=== PATIENT | male | born 1965 | race Two or more races ===

== ENCOUNTER 2017-09-03 12:35 | Inpatient (IN) | payer OTHER ==
[2017-09-03 14:55] VITALS: BMI 24.2
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
[2017-09-03] MEDS ORDERED: NICOTINE POLACRILEX 4 MG GUM BC PRN (15:18)
[2017-09-03] MEDS ORDERED: ACETAMINOPHEN 325 MG TABLET (FP) PO PRN (15:18)
[2017-09-03] MEDS ORDERED: IBUPROFEN 400 MG TABLET (FP) PO PRN (15:18)
[2017-09-03] MEDS ORDERED: MENTHOL/PHENOL 1 EACH UD MM PRN (15:18)
[2017-09-03] MEDS ORDERED: P-EPHED 60MG/TRIPROLIDI 2.5MG TABLET PO PRN (15:18)
[2017-09-03] MEDS ORDERED: hydrOXYzine PAMOATE 50 MG CAPSULE (FP) PO PRN (15:18)
[2017-09-03] MEDS ORDERED: guaiFENesin/D-METHORPHAN HB 10 ML UNIT-DOSE CUPS PO PRN (15:18)
[2017-09-03] MEDS ORDERED: chlordiazePOXIDE HCL 25 MG CAPSULE PO PRN (15:18)
[2017-09-03] MEDS ORDERED: MAG HYDROX/AL HYDROX/SIMETH 30 ML UNIT-DOSE CUP PO PRN (15:18)
[2017-09-03] MEDS ORDERED: diphenhydrAMINE HCL 50 MG CAPSULE PO PRN (15:18)
[2017-09-03] MEDS ORDERED: MAGNESIUM CITRATE 300 ML BOTTLE PO PRN (15:18)
[2017-09-03] MEDS ORDERED: MAGNESIUM HYDROX 2400MG/30ML ORAL SUSPENSION 30 ML CUP PO PRN (15:18)
[2017-09-03] MEDS ORDERED: LOPERAMIDE HCL 2 MG CAPSULE PO PRN (15:18)
[2017-09-03] MEDS ORDERED: chlordiazePOXIDE HCL 25 MG CAPSULE PO ONE (16:45)
[2017-09-03] MEDS ORDERED: METHADONE HCL 10 MG TABLET (FOR DETOX USE ONLY) PO ONE ×2 (17:00→23:00)
[2017-09-03] MEDS: chlordiazePOXIDE HCL 25 MG CAPSULE PO SCH ×2 (17:22→22:21)
[2017-09-03 21:13] LABS: URINE APPEARANCE SLCLOUDY; URINE BILIRUBIN NEGATIVE (NEGATIVE); URINE BLOOD NEGATIVE (NEGATIVE); URINE COLOR YELLOW; URINE GLUCOSE (UA) NEGATIVE (NEGATIVE); URINE KETONE NEGATIVE (NEGATIVE); URINE NITRITE NEGATIVE (NEGATIVE); URINE PROTEIN NEGATIVE (NEGATIVE); URINE UROBILINOGEN NEGATIVE mg/dL (0.2-1.0)
[2017-09-03] MEDS: THIAMINE HCL 100 MG TABLET (FP) PO SCH (22:21)
[2017-09-03 22:36] LABS: URINE LEUK ESTERASE Negative (NEGATIVE)
[2017-09-04] MEDS: chlordiazePOXIDE HCL 25 MG CAPSULE PO SCH ×4 (05:33→22:12)
[2017-09-04] MEDS ORDERED: METHADONE HCL 10 MG TABLET (FOR DETOX USE ONLY) PO SCH (10:00)
[2017-09-04 10:01] LABS: MCH 28.8 pg (25.7-33.7); MCHC 33.1 g/dl (32.0-35.9); MEAN CELL VOLUME 87.1 fl (80-96); MEAN PLT VOLUME 9.2 fl (7.5-11.1); PLATELET COUNT 288 K/MM3 (134-434); RDW 13.6 % (11.9-15.9); WHITE BLOOD COUNT 6.5 K/mm3 (4.0-10.0)
[2017-09-04] MEDS: NICOTINE 21 MG/24 HOURS TOPICAL PATCH TD SCH (10:16)
[2017-09-04] MEDS: PRENATAL VITAMINS W/ FOLIC ACID TABLET (FP) PO SCH (10:16)
[2017-09-04 10:40] LABS: ALBUMIN 3.5 g/dl (3.4-5.0); ALK PHOS 79 U/L (45-117); ANION GAP 8 (8-16); BILIRUBIN,TOTAL 0.6 mg/dL (0.2-1.0); CALCIUM 8.7 mg/dL (8.5-10.1); CO2 26 mmol/L (21-32); GLUCOSE,RANDOM 86 mg/dL (74-106); SGOT/AST 21 U/L (15-37); SGPT/ALT 26 U/L (12-78); TOT PROT 6.7 g/dl (6.4-8.2)
--- NOTE | 2017-09-04 13:24 | EKG ---
Test Reason : Blood Pressure : / mmHG Vent. Rate : 053 BPM Atrial Rate : 053 BPM P-R Int : 150 ms QRS Dur : 084 ms QT Int : 404 ms P-R-T Axes : 049 085 063 degrees QTc Int : [address] ELEVATION, CONSIDER EARLY REPOLARIZATION BORDERLINE ECG NO PREVIOUS ECGS AVAILABLE Confirmed by VERONICA SOLIS MD ([id number]) on 09/04/2017 1:24:41 PM Referred By: Confirmed By:VERONICA SOLIS MD
--- NOTE | 2017-09-04 13:24 | EKG ---
Test Reason : Blood Pressure : / mmHG Vent. Rate : 051 BPM Atrial Rate : 051 BPM P-R Int : 174 ms QRS Dur : 096 ms QT Int : 418 ms P-R-T Axes : 076 082 063 degrees QTc Int : 385 ms SINUS BRADYCARDIA WITH SINUS ARRHYTHMIA OTHERWISE NORMAL ECG WHEN COMPARED WITH ECG OF 03-SEP-2017 17:04, NO SIGNIFICANT CHANGE WAS FOUND Confirmed by VERONICA SOLIS MD ([id number]) on 09/04/2017 1:24:13 PM Referred By: Confirmed By:VERONICA SOLIS MD
--- NOTE | 2017-09-04 14:09 | PN ---
[facility] CIWA - CIWA Score Nausea/Vomitin-No Nausea/No Vomiting Muscle Tremors: 4-Moderate,w/Arms Extend Anxiety: 4-Mod. Anxious/Guarded Agitation: 3 Paroxysmal Sweats: 3 Orientation: 0-Oriented Tacttile Disturbances: 2-Mild Itch/Numbness/Burn Auditory Disturbances: 0-None Visual Disturbances: 2-Mild Sensitivity Headache: 0-None Present CIWA-Ar Total Score: 18 BHS COWS - Scale Resting Pulse: 0= [place] 80 or Below Sweatin= Chills/Flushing Restless Observation: 1= Difficult to Sit Still Pupil Size: 0= Normal to Room Light Bone or Joint Aches: 2= Severe Diffuse Aches Runny Nose/ Eye Tearin= Nasal Congestion GI Upset > 30mins: 1= Stomach Cramp Tremor Observation of Outstretched Hands: 2= Slight Tremor Visible Yawning Observation: 1= 1-2x During Session Anxiety or Irritability: 2=Irritable/Anxious Goose Flesh Skin: 3=Piloerection COWS Score: 14 [facility] Progress Note (SOAP) Subjective: Stomach Cramping, Body Aches, Sweating, Tremors. Objective: PT. A & O X 3, OBSERVED AMBULATING ON UNIT. NO ACUTE DISTRESS. 09/04/17 14:10 Vital Signs Temperature 97.5 F L 09/04/17 13:35 Pulse Rate 66 09/04/17 13:35 Respiratory Rate 16 09/04/17 13:35 Blood Pressure 108/71 09/04/17 13:35 O2 Sat by Pulse Oximetry (%) Laboratory Tests 09/03/17 09/04/17 09/04/17 20:45 05:45 05:45 WBC 6.5 RBC 4.55 Hgb 13.1 Hct 39.6 MCV 87.1 MCH 28.8 MCHC 33.1 RDW 13.6 Plt Count 288 MPV 9.2 Sodium 139 Potassium 4.1 Chloride 105 Carbon Dioxide 26 Anion Gap 8 BUN 11 Creatinine 1.0 Creat Clearance w eGFR > 60 Random Glucose 86 Calcium 8.7 Total Bilirubin 0.6 D AST 21 D ALT 26 Alkaline Phosphatase 79 Total Protein 6.7 Albumin 3.5 Urine Color Yellow Urine Appearance Slcloudy Urine pH 5.0 Ur Specific [place] 1.025 Urine Protein Negative Urine Glucose (UA) Negative Urine Ketones Negative Urine Blood Negative Urine Nitrite Negative Urine Bilirubin Negative Urine Urobilinogen Negative Ur Leukocyte Esterase Negative RPR Titer 09/04/17 05:45 WBC RBC Hgb Hct MCV MCH MCHC RDW Plt Count MPV Sodium Potassium Chloride Carbon Dioxide Anion Gap BUN Creatinine Creat Clearance w eGFR Random Glucose Calcium Total Bilirubin AST ALT Alkaline Phosphatase Total Protein Albumin Urine Color Urine Appearance Urine pH Ur Specific [place] Urine Protein Urine Glucose (UA) Urine Ketones Urine Blood Urine Nitrite Urine Bilirubin Urine Urobilinogen Ur Leukocyte Esterase RPR Titer Nonreactive LABS NOTED. Assessment: 09/04/17 14:10 WITHDRAWAL SYMPTOMS. Plan: CONTINUE DETOX.
[2017-09-04] MEDS: THIAMINE HCL 100 MG TABLET (FP) PO SCH (22:12)
[2017-09-05] MEDS: chlordiazePOXIDE HCL 25 MG CAPSULE PO SCH ×2 (05:25→11:55)
[2017-09-05] MEDS ORDERED: CYCLOBENZAPRINE HCL 10 MG TABLET (FP) PO PRN (09:59)
[2017-09-05] MEDS ORDERED: METHADONE HCL 5 MG TABLET (FOR DETOX USE ONLY) PO SCH (10:00)
[2017-09-05] MEDS: PRENATAL VITAMINS W/ FOLIC ACID TABLET (FP) PO SCH (10:32)
[2017-09-05] MEDS: NICOTINE 21 MG/24 HOURS TOPICAL PATCH TD SCH (10:33)
--- NOTE | 2017-09-05 12:56 | PN ---
[facility] CIWA - CIWA Score Nausea/Vomitin Muscle Tremors: 3 Anxiety: 3 Agitation: 1-Slight > Activity Paroxysmal Sweats: 3 Orientation: 0-Oriented Tacttile Disturbances: 0-None Auditory Disturbances: 2-Mild Harshness/Frighten Visual Disturbances: 2-Mild Sensitivity Headache: 0-None Present CIWA-Ar Total Score: 17 BHS COWS - Scale Resting Pulse: 1= [place] 81-100 Sweatin= Chills/Flushing Restless Observation: 1= Difficult to Sit Still Pupil Size: 0= Normal to Room Light Bone or Joint Aches: 2= Severe Diffuse Aches Runny Nose/ Eye Tearin= Nasal Congestion GI Upset > 30mins: 1= Stomach Cramp Tremor Observation of Outstretched Hands: 2= Slight Tremor Visible Yawning Observation: 1= 1-2x During Session Anxiety or Irritability: 2=Irritable/Anxious Goose Flesh Skin: 0=Smooth Skin COWS Score: 12 [facility] Progress Note (SOAP) Subjective: Sweating, Interrupted Sleep, Sweating, Body aches, Chills, Fatigue. Objective: PT. A & O X 3, OBSERVED AMBULATING ON UNIT. NO ACUTE DISTRESS. 09/05/17 13:01 Vital Signs Temperature 97.3 F L 09/05/17 09:07 Pulse Rate 81 09/05/17 09:07 Respiratory Rate 16 09/05/17 09:07 Blood Pressure 122/68 09/05/17 09:07 O2 Sat by Pulse Oximetry (%) Laboratory Tests 09/03/17 09/04/17 09/04/17 20:45 05:45 05:45 WBC 6.5 RBC 4.55 Hgb 13.1 Hct 39.6 MCV 87.1 MCH 28.8 MCHC 33.1 RDW 13.6 Plt Count 288 MPV 9.2 Sodium 139 Potassium 4.1 Chloride 105 Carbon Dioxide 26 Anion Gap 8 BUN 11 Creatinine 1.0 Creat Clearance w eGFR > 60 Random Glucose 86 Calcium 8.7 Total Bilirubin 0.6 D AST 21 D ALT 26 Alkaline Phosphatase 79 Total Protein 6.7 Albumin 3.5 Urine Color Yellow Urine Appearance Slcloudy Urine pH 5.0 Ur Specific [place] 1.025 Urine Protein Negative Urine Glucose (UA) Negative Urine Ketones Negative Urine Blood Negative Urine Nitrite Negative Urine Bilirubin Negative Urine Urobilinogen Negative Ur Leukocyte Esterase Negative RPR Titer 10/25/17 05:45 WBC RBC Hgb Hct MCV MCH MCHC RDW Plt Count MPV Sodium Potassium Chloride Carbon Dioxide Anion Gap BUN Creatinine Creat Clearance w eGFR Random Glucose Calcium Total Bilirubin AST ALT Alkaline Phosphatase Total Protein Albumin Urine Color Urine Appearance Urine pH Ur Specific [place] Urine Protein Urine Glucose (UA) Urine Ketones Urine Blood Urine Nitrite Urine Bilirubin Urine Urobilinogen Ur Leukocyte Esterase RPR Titer Nonreactive LABS NOTED. Assessment: 09/05/17 13:01 WITHDRAWAL SYMPTOMS. Plan: CONTINUE DETOX.
[2017-09-05] MEDS: chlordiazePOXIDE 5 MG CAPSULE PO SCH ×2 (17:27→22:17)
[2017-09-05] MEDS: THIAMINE HCL 100 MG TABLET (FP) PO SCH (22:17)
[2017-09-06] MEDS: chlordiazePOXIDE 5 MG CAPSULE PO SCH ×2 (06:34→10:08)
[2017-09-06] MEDS ORDERED: METHADONE HCL 5 MG TABLET (FOR DETOX USE ONLY) PO SCH (09:30)
[2017-09-06 10:06] VITALS: BP 120/79; PULSE 73; TEMP 99
[2017-09-06] MEDS: PRENATAL VITAMINS W/ FOLIC ACID TABLET (FP) PO SCH (10:08)
[2017-09-06] MEDS: NICOTINE 21 MG/24 HOURS TOPICAL PATCH TD SCH (10:08)
[2017-09-06] MEDS ORDERED: chlordiazePOXIDE HCL 10 MG CAPSULE PO SCH (17:00)
--- NOTE | 2017-09-06 17:19 | DS ---
[facility] Detox Discharge Summary Admission Date: 09/03/17 Discharge Date: 09/06/17 - History Present History: Alcohol Dependence, Cocaine Dependence, Opioid Dependence Additional Comments: PATIENT REPORTS THAT HE GENERALLY FEELS WELL AND THAT DETOX SYMPTOMS ARE MINIMAL AT TIME OF DISCHARGE FROM DETOX. PATIENT GOING HOME AND REPORTS THAT HE WILL RETURN TO OUTPATIENT NA / AA SUPPORT GROUP MEETINGS FOR AFTERCARE. PATIENT WAS DISCHARGED FROM DETOX UNIT IN STABLE MEDICAL CONDITION. Pertinent Past History: Nicotine Dependence. - Physical Exam Results Vital Signs: Vital Signs Temperature 99.0 F 09/06/17 10:00 Pulse Rate 73 09/06/17 10:00 Respiratory Rate 18 09/06/17 10:00 Blood Pressure 120/79 09/06/17 10:00 O2 Sat by Pulse Oximetry (%) Pertinent Admission Physical Exam Findings: WITHDRAWAL SYMPTOMS. Laboratory Tests 09/03/17 09/04/17 09/04/17 20:45 05:45 05:45 WBC 6.5 RBC 4.55 Hgb 13.1 Hct 39.6 MCV 87.1 MCH 28.8 MCHC 33.1 RDW 13.6 Plt Count 288 MPV 9.2 Sodium 139 Potassium 4.1 Chloride 105 Carbon Dioxide 26 Anion Gap 8 BUN 11 Creatinine 1.0 Creat Clearance w eGFR > 60 Random Glucose 86 Calcium 8.7 Total Bilirubin 0.6 D AST 21 D ALT 26 Alkaline Phosphatase 79 Total Protein 6.7 Albumin 3.5 Urine Color Yellow Urine Appearance Slcloudy Urine pH 5.0 Ur Specific [place] 1.025 Urine Protein Negative Urine Glucose (UA) Negative Urine Ketones Negative Urine Blood Negative Urine Nitrite Negative Urine Bilirubin Negative Urine Urobilinogen Negative Ur Leukocyte Esterase Negative RPR Titer 09/04/17 05:45 WBC RBC Hgb Hct MCV MCH MCHC RDW Plt Count MPV Sodium Potassium Chloride Carbon Dioxide Anion Gap BUN Creatinine Creat Clearance w eGFR Random Glucose Calcium Total Bilirubin AST ALT Alkaline Phosphatase Total Protein Albumin Urine Color Urine Appearance Urine pH Ur Specific [place] Urine Protein Urine Glucose (UA) Urine Ketones Urine Blood Urine Nitrite Urine Bilirubin Urine Urobilinogen Ur Leukocyte Esterase RPR Titer Nonreactive LABS NOTED. - Treatment Hospital Course: Detox Protocol Followed, Detoxed Safely, Responded well, Discharged Condition Good Patient has Accepted a Rehab Referral to: NO. PT WILL RETURN TO NA/AA OUTPATIENT SUPPORT GROUP MEETINGS FOR AFTERCARE - Medication Discharge Medications: Ambulatory Orders NK [No Known Home Medication] 07/20/14 - Diagnosis (1) Cocaine dependence Status: Chronic Qualifiers: Substance use status: uncomplicated Qualified Code(s): F14.20 - Cocaine dependence, uncomplicated; F14.20 - Cocaine dependence, uncomplicated; F14.20 - Cocaine dependence, uncomplicated (2) Nicotine dependence Status: Chronic Qualifiers: Nicotine product type: cigarettes Substance use status: uncomplicated Qualified Code(s): F17.210 - Nicotine dependence, cigarettes, uncomplicated; F17.210 - Nicotine dependence, cigarettes, uncomplicated (3) Opioid dependence, uncomplicated Status: Acute (4) Alcohol dependence with uncomplicated withdrawal Status: Acute - AMA Did Patient Leave Against Medical Advice: No
[2017-09-07] MEDS ORDERED: METHADONE HCL 10 MG TABLET (FOR DETOX USE ONLY) PO SCH (10:00)
[2017-09-08] MEDS ORDERED: METHADONE HCL 5 MG TABLET (FOR DETOX USE ONLY) PO SCH (06:00)
== END 2017-09-06 10:27 | disposition home or self-care (01) | DRG 773 ==
LOC: YASAS 12:35 → Y3N 15:50
PROVIDERS: ADMIT Internal Medicine; ATTEND Internal Medicine
PROC: HZ2ZZZZ Detoxification Services for Substance Abuse Treatment (ICD-10-PCS; principal; 2017-09-03)
DX: F11.20 Opioid dependence, uncomplicated (principal); F10.230 Alcohol dependence with withdrawal, uncomplicated; F14.20 Cocaine dependence, uncomplicated; F17.210 Nicotine dependence, cigarettes, uncomplicated; R76.11 Nonspecific reaction to tuberculin skin test without active tuberculosis
CPT/HCPCS: 36415; 71020-TC; 80053; 81003; 85027; 86593; 93005; 93010